=== PATIENT | female | born 1945 | race Hispanic/Latino ===

== ENCOUNTER → 2025-09-27 | Outpatient (CLI) | payer OTHER ==
[~2025-09-27] MED LIST: IOHEXOL 350 MG/ML 100ML INFUS..BTL IV ONE
== END ==
LOC: RAH 07:04
PROVIDERS: ATTEND Student in an Organized Health Care Education/Training Program
DX: R00.1 Bradycardia, unspecified (principal)
CPT/HCPCS: 75574; J3490; Q9967